=== PATIENT | male | born 1970 | race Caucasian/White ===

== ENCOUNTER 2020-10-05 03:38 | Emergency (ER) | payer OTHER, SELFPAY ==
[2020-10-05 04:04] VITALS: BP 143/93; PULSE 84; RESP 17; TEMP 36.7; O2SAT 98; BMI 25.8
[2020-10-05] MEDS: 0.9 % Sodium Chloride 1,000 ML 999 ML IV (04:53)
[2020-10-05] MEDS: ondansetron HCL 4 MG/2 ML VIAL IVPUSH ×2 (04:53→05:59)
[2020-10-05] MEDS: diphenhydrAMINE HCL 50 MG/ML VIAL 25 MG IVPUSH (04:53)
[2020-10-05] MEDS: Metoclopramide HCl 10 MG/2 ML VIAL IVPUSH (04:53)
[2020-10-05 05:08] LABS: MANUAL DIFF FLAG NO
[2020-10-05 05:09] LABS: Basophils Percent Auto 0.2 % (0-2); Hematocrit 52.6 % (42-52); Imm Gran Abs Auto 0.03 X10*3/uL (0.00-0.03); Imm Gran Pct Auto 0.2 % (0.0-0.4); Lymphocytes Absolute Auto 1.7 X10*3/uL (1.2-4.9); Lymphocytes Percent Auto 13.8 % (20-40); Mean Corpuscular HGB Conc 34.2 g/dl (31.0-36.0); Mean Corpuscular Hemoglobin 30.5 pg (27.0-33.0); Mean Corpuscular Volume 89.2 fL (80-98); Mean Platelet Volume 11.6 fL (9.4-12.4); Monocytes Absolute Auto 0.5 X10*3/uL (0.1-1.2); Neutrophils Percent Auto 81.8 % (45-73); Platelet Count 269 X10*3/uL (160-400); White Blood Count 12.2 X10*3/uL (4.8-10.8)
--- NOTE | 2020-10-05 05:10 | ED_ITS ---
HPI - Nausea/Vomiting/Diarrhea General Chief complaint: Nausea/Vomiting/Diarrhea Stated complaint: nausea/vomiting Time Seen by Provider: 10/05/20 04:23 Source: patient Mode of arrival: ambulatory History of Present Illness HPI Narrative: 49-year-old male with history of cyclical vomiting presents with recurrence of symptoms with multiple episodes of nausea and vomiting after smoking marijuana yesterday. Otherwise, he denies any new cough, fevers, chills, abdominal pain or diarrhea, and denies any urinary pain/burning/frequency. Related Data Allergies Allergy/AdvReac Type Severity Reaction Status Date / Time No Known Allergies Allergy Unverified 03/13/20 14:54 Review of Systems Review of Systems: Pertinent positives and negatives as stated in HPI and 10 point review of systems is otherwise negative. [facility] Past Medical History Source: nursing notes reviewed Medical History Cyclical vomiting with nausea Social History Social History Advance Directives: No Physical Exam Vital Signs: Vital Signs: Last Vital Signs Temp 98.0 F 10/05/20 04:04 Pulse 84 10/05/20 04:04 Resp 17 10/05/20 04:04 BP 143/93 H 10/05/20 04:04 Pulse Ox 98 10/05/20 04:04 Body Mass Index 25.8 VITAL SIGNS: Reviewed. GENERAL: Well developed, well nourished, in no acute distress. HEAD: Normocephalic/atraumatic EYES: PERRLA, EOMI NOSE: Nares patent bilateral OROPHARYNX: no oral lesions noted, posterior pharynx clear NECK: Supple, no adenopathy LUNGS: Normal breath sounds. No adventitious sounds or accessory muscle use. SpO2<98> CARDIOVASCULAR: Regular rate and rhythm without noted murmurs ABDOMEN: Soft, non-tender, non-distended with bowel sounds. NEUROLOGIC: Alert and oriented x 4. Course Course Course Narrative: This is a 49-year-old male with history and clinical presentation consistent with his underlying cyclical vomiting etiology as clinical exam is otherwise benign and doubt any intra-abdominal or intrathoracic abnormalities. Review of all investigations illustrate mild worsening of renal function likely secondary to dehydration from multiple episodes of nausea and vomiting. Will repeat basic metabolic panel. Otherwise, patient is tolerating oral intake and on re-evaluation has had complete resolution of nausea and vomiting. Signed out to Dr Mccall: f/u BMP then d/c if improvement. MDM - Nausea/Vomiting/Diarrhea Lab Data Result diagrams: 10/05/20 04:59 10/05/20 04:59 Labs: Lab Results 10/05/20 10/05/20 10/05/20 Range/Units 04:59 04:59 06:46 WBC 12.2 H (4.8-10.8) X10*3/uL RBC 5.90 H (4.60-5.80) X10*6/uL Hgb 18.0 (14.0-18.0) g/dl Hct 52.6 H (42-52) % MCV 89.2 (80-98) fL MCH 30.5 (27.0-33.0) pg MCHC 34.2 (31.0-36.0) g/dl RDW 14.0 (11.0-16.0) % Plt Count 269 (160-400) X10*3/uL MPV 11.6 (9.4-12.4) fL Immature Gran % (Auto) 0.2 (0.0-0.4) % Neut % (Auto) 81.8 H (45-73) % Lymph % (Auto) 13.8 L (20-40) % [place] % (Auto) 4.0 (2-11) % Eos % (Auto) 0.0 (0-4) % Baso % (Auto) 0.2 (0-2) % Lymph # (Auto) 1.7 (1.2-4.9) X10*3/uL [place] # (Auto) 0.5 (0.1-1.2) X10*3/uL Eos # (Auto) 0.0 (0.0-0.4) X10*3/uL Baso # (Auto) 0.0 (0.0-0.2) X10*3/uL Abs Immat Gran (auto) 0.03 (0.00-0.03) X10*3/uL Absolute Neuts (auto) 10.0 H (2.0-8.3) X10*3/uL Absolute Nucleated RBC 0.000 (0.0-0.012) X10*3/uL Nucleated RBC % (auto) 0.0 (0.0-0.2) /100WBC Sodium 148 H (135-145) mmol/L Potassium 4.3 (3.3-5.1) mmol/L Chloride 112 H (96-108) mmol/L Carbon Dioxide 15 L (22-29) mmol/L Anion Gap 25 H (12-20) BUN 37 H (9-16) mg/dL Creatinine 1.93 H (0.5-1.4) mg/dL Estim Creat Clear Calc 42.2 Estimated GFR 37 Random Glucose 144 H (60-115) mg/dL Calcium 10.6 H (8.4-10.2) mg/dL Total Bilirubin 0.9 (0.0-1.0) mg/dL AST 21 (5-37) U/L ALT 29 (0-40) U/L Alkaline Phosphatase 72 (39-117) U/L Total Protein 8.6 H (6.5-8.0) g/dL Albumin 5.1 H (3.5-5.0) g/dL Urine Color DARK YELLOW Urine Appearance CLEAR Urine pH 6.0 (5.0-8.0) Ur Specific [place] >= 1.030 H (1.005-1.025) Urine Protein TRACE (NEG-TRACE) MG/DL Urine Glucose (UA) NEG (NEG) MG/DL Urine Ketones 15 (NEG) MG/DL Urine Blood TRACE (NEG) Urine Nitrite NEG (NEG) Ur Leukocyte Esterase NEG (NEG) Urine RBC 1-4 (0) /HPF Urine WBC 0 (0-4) /HPF Ur Squamous Epith Cells TRACE /LPF Amorphous Sediment 1+ /LPF Urine Bacteria NONE /LPF Hyaline Casts 5-9 /LPF Granular Casts 0-2 /LPF Urine Mucus 1+ /LPF Discharge Plan Discharge Clinical Impression: Dehydration, Cyclical vomiting Patient Disposition: Home, Self-Care Instructions: Cyclic Vomiting Syndrome (ED), Dehydration (ED) Additional Instructions: Continues to drink plenty of water. Do not hesitate to return to the emergency department for any acute worsening of her symptoms. Referrals: Natan Chirinos MD [Primary Care Provider] - 2 days (Re-evaluation after pat ient seen in the emergency department for cyclic vomiting)
[2020-10-05 05:39] LABS: Alanine Aminotransferase 29 U/L (0-40); Albumin Level 5.1 g/dL (3.5-5.0); Alkaline Phosphatase 72 U/L (39-117); Anion Gap 25 (12-20); Aspartate Amino Transferase 21 U/L (5-37); Bilirubin Total 0.9 mg/dL (0.0-1.0); Blood Urea Nitrogen 37 mg/dL (9-16); Calcium 10.6 mg/dL (8.4-10.2); Carbon Dioxide 15 mmol/L (22-29); Chloride 112 mmol/L (96-108); Creatinine Clr Calc Pharmacy 42.2; Estimated Glomerular Filt Rate 37; Glucose Random 144 mg/dL (60-115); Potassium 4.3 mmol/L (3.3-5.1); Sodium 148 mmol/L (135-145); Total Protein 8.6 g/dL (6.5-8.0)
[2020-10-05] MEDS: LORazepam 2 MG/ML VIAL 0.25 MG IVPUSH (06:00)
--- NOTE | 2020-10-05 06:10 | PC.NURSE ---
pt states im feeling better .
[2020-10-05 06:53] LABS: Glucose Urine UA NEG (NEG); Leukocyte Esterase Urine NEG (NEG); Nitrite Urine NEG (NEG); Specific Gravity - Urine >= 1.030 (1.005-1.025); Urine Blood TRACE (NEG); Urine Ketones 15 MG/DL (NEG); Urine Protein TRACE MG/DL (NEG-TRACE)
[2020-10-05 07:11] LABS: Appearance Urine CLEAR; Color Urine DARK YELLOW
[2020-10-05 07:12] LABS: WBC Urine 0 /HPF (0-4)
[2020-10-05 07:13] LABS: Amorphous Sediment Urine 1+ /LPF; Granular Casts Urine 0-2 /LPF; Mucus Urine 1+ /LPF; Squamous Epithelial Cell Urine TRACE /LPF
[2020-10-05 07:23] LABS: Anion Gap 17 (12-20); Blood Urea Nitrogen 35 mg/dL (9-16); Carbon Dioxide 21 mmol/L (22-29); Chloride 114 mmol/L (96-108); Creatinine Clr Calc Pharmacy 47.6; Estimated Glomerular Filt Rate 43; Glucose Random 138 mg/dL (60-115); Potassium 4.2 mmol/L (3.3-5.1); Sodium 148 mmol/L (135-145)
[2020-10-05 07:32] LABS: Calcium 9.5 mg/dL (8.4-10.2)
[2020-10-05 07:58] VITALS: BP 126/77; PULSE 73; RESP 20; O2SAT 100
== END 2020-10-05 08:06 | disposition home or self-care (01) ==
PROVIDERS: Student in an Organized Health Care Education/Training Program; Emergency Provider Emergency Medicine Emergency Medical Services; PCP Family Medicine
DX: E86.0 Dehydration (principal); R11.15 Cyclical vomiting syndrome unrelated to migraine; F12.90 Cannabis use, unspecified, uncomplicated
CPT/HCPCS: 36415; 80048; 80053; 81001; 81003; 85025; 96361; 96374; 96375; 96376; 99284; J1200; J2060; J2405; J2765

== ENCOUNTER 2021-01-28 04:10 | Emergency (ER) | payer OTHER, SELFPAY ==
[2021-01-28 04:27] VITALS: BP 144/98; PULSE 110; RESP 18; TEMP 36.8; O2SAT 96; BMI 25.0
--- NOTE | 2021-01-28 04:56 | ED.NAVMDI ---
HPI - Nausea/Vomiting/Diarrhea General Chief complaint: Nausea/Vomiting/Diarrhea Stated complaint: Vomiting Time Seen by Provider: 01/28/21 04:56 Source: patient Mode of arrival: ambulatory Limitations: no limitations History of Present Illness HPI Narrative: Patient with history of cannabis abuse and cyclic vomiting syndrome comes here for vomiting since yesterday had multiple episodes of vomiting unable to hold down anything solid or liquid urinated only 1 time since yesterday p.m. smoked cannabis 2 days ago , feels very anxious no abdominal pain no diarrhea Related Data Previous Rx's Medication Instructions Recorded ondansetron HCl 4 mg tablet 4 mg PO Q6H PRN #20 tab 10/05/20 (Zofran) Allergies Allergy/AdvReac Type Severity Reaction Status Date / Time No Known Allergies Allergy Verified 01/28/21 04:28 Review of Systems Review of Systems: Yes all other systems are reviewed and are negative [facility] Past Medical History Medical History Cyclical vomiting with nausea Social History Social History Alcohol intake: current Alcohol intake frequency: a few times a month Substance Use Type: Marijuana Advance Directives: No Advance Directives Information Provided: No Physical Exam Vital Signs: Vital Signs: Last Vital Signs Temp 98.2 F 01/28/21 04:27 Pulse 110 H 01/28/21 04:27 Resp 18 01/28/21 04:27 BP 144/98 H 01/28/21 04:27 Pulse Ox 96 01/28/21 04:27 Body Mass Index 25.0 Appearance: Alert. Oriented X3. Mild distress very anxious. Eyes: No icterus or pallor ENT: Pharynx normal. Oral Mucosa dry Neck: Normal inspection. Neck supple. CVS: Normal heart rate and rhythm. Pulses normal. Respiratory: No respiratory distress. Equal air entry bilateral, no wheezing/rales/rhonchi Abdomen: Soft and nontender. Bowel sounds are present, no mass palpable, no CVA tenderness Skin: Skin warm and dry. Normal skin color. Normal skin turgor. Extremities: No lower extremity edema. No calf tenderness Neuro: Oriented X 3. MDM - Nausea/Vomiting/Diarrhea MDM Narrative Medical decision making narrative: Patient to poor oral intake with vomiting with acute on chronic renal failure. Will give 2 L of IV fluids repeat the labs and follow Patient signed out to Dr. Fleming pending disposition Medical Records Medical records narrative: Patient with decreased oral intake with vomiting with acute renal failure and hypernatremia. Will give IV fluids recheck lytes and kidney functions and disposition will be decided after checking the repeat labs Lab Data Attestation: I reviewed the patient's lab results. Result diagrams: 01/28/21 05:17 01/28/21 05:17 Labs: Lab Results 01/28/21 01/28/21 Range/Units 05:17 05:17 WBC 12.8 H (4.8-10.8) X10*3/uL RBC 6.26 H (4.60-5.80) X10*6/uL Hgb 19.3 H (14.0-18.0) g/dl Hct 56.1 H (42-52) % MCV 89.6 (80-98) fL MCH 30.8 (27.0-33.0) pg MCHC 34.4 (31.0-36.0) g/dl RDW 13.3 (11.0-16.0) % Plt Count 332 (160-400) X10*3/uL MPV 11.1 (9.4-12.4) fL Immature Gran % (Auto) 0.5 H (0.0-0.4) % Neut % (Auto) 86.2 H (45-73) % Lymph % (Auto) 10.4 L (20-40) % [place] % (Auto) 2.7 (2-11) % Eos % (Auto) 0.0 (0-4) % Baso % (Auto) 0.2 (0-2) % Lymph # (Auto) 1.3 (1.2-4.9) X10*3/uL [place] # (Auto) 0.4 (0.1-1.2) X10*3/uL Eos # (Auto) 0.0 (0.0-0.4) X10*3/uL Baso # (Auto) 0.0 (0.0-0.2) X10*3/uL Abs Immat Gran (auto) 0.06 H (0.00-0.03) X10*3/uL Absolute Neuts (auto) 11.0 H (2.0-8.3) X10*3/uL Absolute Nucleated RBC 0.000 (0.0-0.012) X10*3/uL Nucleated RBC % (auto) 0.0 (0.0-0.2) /100WBC Sodium 151 H (135-145) mmol/L Potassium 4.6 (3.3-5.1) mmol/L Chloride 111 H (96-108) mmol/L Carbon Dioxide 23 (22-29) mmol/L Anion Gap 21 H (12-20) BUN 31 H (9-16) mg/dL Creatinine 2.43 H (0.5-1.4) mg/dL Estim Creat Clear Calc 33.1 Estimated GFR 29 Random Glucose 153 H (60-115) mg/dL Calcium 11.8 H D (8.4-10.2) mg/dL Discharge Plan Discharge Clinical Impression: Acute hypernatremia Vomiting Qualifiers: Vomiting type: cyclical vomiting syndrome unrelated to migraine Qualified Code(s): R11.15 - Cyclical vomiting syndrome unrelated to migraine Acute renal failure superimposed on chronic kidney disease Qualifiers: Acute renal failure type: unspecified Chronic kidney disease stage: stage 3 (moderate) Chronic kidney disease stage 3 subtype: stage 3a (GFR 45-59) Qualified Code(s): N17.9 - Acute kidney failure, unspecified Prescriptions: No Action ondansetron HCl [Zofran] 4 mg tablet 4 mg PO Q6H PRN (Reason: nausea and vomiting) Qty: 20 RF: 0
[2021-01-28] MEDS: 0.9 % Sodium Chloride 1,000 ML 999 ML IVCONT ×3 (05:18→09:13)
[2021-01-28 05:22] LABS: MANUAL DIFF FLAG NO
[2021-01-28 05:23] LABS: Basophils Percent Auto 0.2 % (0-2); Hemoglobin 19.3 g/dl (14.0-18.0); Imm Gran Abs Auto 0.06 X10*3/uL (0.00-0.03); Imm Gran Pct Auto 0.5 % (0.0-0.4); Lymphocytes Absolute Auto 1.3 X10*3/uL (1.2-4.9); Lymphocytes Percent Auto 10.4 % (20-40); Mean Corpuscular HGB Conc 34.4 g/dl (31.0-36.0); Mean Corpuscular Hemoglobin 30.8 pg (27.0-33.0); Mean Corpuscular Volume 89.6 fL (80-98); Mean Platelet Volume 11.1 fL (9.4-12.4); Monocytes Absolute Auto 0.4 X10*3/uL (0.1-1.2); Monocytes Percent Auto 2.7 % (2-11); Neutrophils Percent Auto 86.2 % (45-73); Platelet Count 332 X10*3/uL (160-400); Red Blood Count 6.26 X10*6/uL (4.60-5.80); Red Cell Distribution Width 13.3 % (11.0-16.0); White Blood Count 12.8 X10*3/uL (4.8-10.8)
[2021-01-28 05:26] LABS: Hematocrit 56.1 % (42-52)
[2021-01-28] MEDS: LORazepam 2 MG/ML VIAL 1 MG IVPUSH (05:28)
[2021-01-28] MEDS: Prochlorperazine Edisylate 10 MG/2 ML VIAL IVPUSH (05:28)
[2021-01-28 06:01] LABS: Anion Gap 21 (12-20); Blood Urea Nitrogen 31 mg/dL (9-16); Calcium 11.8 mg/dL (8.4-10.2); Carbon Dioxide 23 mmol/L (22-29); Chloride 111 mmol/L (96-108); Creatinine Clr Calc Pharmacy 33.1; Estimated Glomerular Filt Rate 29; Glucose Random 153 mg/dL (60-115); Potassium 4.6 mmol/L (3.3-5.1); Sodium 151 mmol/L (135-145)
[2021-01-28 07:15] VITALS: BP 144/98; PULSE 101; RESP 16; TEMP 36.5; O2SAT 96
--- NOTE | 2021-01-28 08:16 | PC.NURSE ---
Patient is resting quietly in bed in no distress. Pt denies any pain. Pt has tolerated sips of water well this morning
[2021-01-28 08:29] VITALS: BP 136/89; PULSE 90; RESP 14; O2SAT 98
--- NOTE | 2021-01-28 08:55 | PC.NURSE ---
Patient blood drawn for repeat labs. Pt states he want to go home and and be called with the results. Doctor notified of request.
--- NOTE | 2021-01-28 09:01 | PC.NURSE ---
Doctor at bedside talking with patient
--- NOTE | 2021-01-28 09:43 | PC.NURSE ---
Patient is resting quietly in bed in no distress. Pt denies any pain. Pt given ice chips per his request.
[2021-01-28 09:44] LABS: Blood Urea Nitrogen 27 mg/dL (9-16); Creatinine Clr Calc Pharmacy 47.9; Estimated Glomerular Filt Rate 44; Glucose Random 124 mg/dL (60-115)
[2021-01-28 10:11] LABS: Anion Gap 17 (12-20); Calcium 9.3 mg/dL (8.4-10.2); Carbon Dioxide 21 mmol/L (22-29); Chloride 117 mmol/L (96-108); Potassium 4.1 mmol/L (3.3-5.1); Sodium 151 mmol/L (135-145)
--- NOTE | 2021-01-28 10:36 | PC.NURSE ---
Patient is asleep in bed in no distress
--- NOTE | 2021-01-28 10:42 | PC.NURSE ---
Patient requesting to talk to the doctor. Pt not wanting any additional iv fluids. Doctor notified.
--- NOTE | 2021-01-28 10:53 | PC.NURSE ---
Peripheral iv removed and pressure bandage applied. Discharge instructions given to pt who verbalized understanding and denies any questions.
== END 2021-01-28 10:54 | disposition home or self-care (01) ==
PROVIDERS: Emergency Provider Internal Medicine
DX: E87.0 Hyperosmolality and hypernatremia (principal); R11.15 Cyclical vomiting syndrome unrelated to migraine; N17.9 Acute kidney failure, unspecified; F12.10 Cannabis abuse, uncomplicated
CPT/HCPCS: 36415; 80048; 85025; 96361; 96374; 96375; 99284; J2060

== ENCOUNTER 2021-10-23 04:02 | Emergency (ER) | payer OTHER, SELFPAY ==
[2021-10-23 04:08] VITALS: BP 145/111; PULSE 83; RESP 20; TEMP 37.1; O2SAT 99; BMI 25.3
--- NOTE | 2021-10-23 04:17 | ED.NAVMDI ---
HPI - Nausea/Vomiting/Diarrhea General Chief complaint: Nausea/Vomiting/Diarrhea Stated complaint: n/v Time Seen by Provider: 10/23/21 04:11 Source: patient Mode of arrival: ambulatory Limitations: no limitations History of Present Illness HPI Narrative: Patient comes to emergency room complaining of 2 days of cyclical vomiting. Patient states that he has been using marijuana. 2 hours ago, patient use sublingual Zofran without any relief. Patient denies vomiting blood, no diarrhea, no fever chills. Related Data Previous Rx's Medication Instructions Recorded ondansetron HCl 4 mg tablet 4 mg PO Q6H PRN #20 tab 10/05/20 (Zofran) ondansetron HCl 4 mg tablet 4 mg PO Q8H PRN #10 tab 01/28/21 (Zofran) prochlorperazine 25 mg rectal 25 mg ND BID PRN #12 ea 10/23/21 suppository (Compazine) prochlorperazine maleate 5 mg 5 mg PO TID PRN #10 tab 10/23/21 tablet (Compazine) Allergies Allergy/AdvReac Type Severity Reaction Status Date / Time No Known Allergies Allergy Verified 10/23/21 04:10 Review of Systems Review of Systems: Constitutional : No Weight loss, No Fever, No Chills, No Night Sweats, No Fatigue, No Malaise ENT/Mouth : No Hearing loss, No Ear Pain, No Nasal Congestion, No Sinus Pain, No Hoarseness, No sore throat, No Rhinorrhea, No Swallowing Difficulty Eyes: No Eye Pain, No Swelling, No Redness, No Foreign Body, No Discharge, No Vision Changes Cardiovascular : No Chest Pain, No SOB, No Dyspnea on Exertion, No Orthopnea, No Edema, No Palpitations Respiratory : No Cough, No Sputum, No Wheezing, No Smoke Exposure, No Dyspnea Gastrointestinal : Complaining of nausea vomiting, Diarrhea, No Constipation, No abdominal Pain, No Hematochezia, No Melena Genitourinary : no irregular bleeding, No Dysuria, No Urinary Frequency, No Hematuria, No Urinary Incontinence, No Urgency, No Flank Pain, No Urinary Flow Changes, No Hesitancy Musculoskeletal : No joint pain, No Myalgias, No Joint Swelling Skin : No Skin Lesions, No rash Neuro : No Weakness, No Numbness, No Paresthesias, No Loss of Consciousness, No Dizziness, No Headache Psych : No Anxiety/Panic, No Depression, No SI/HI/AH/VH, No Social Issues, Heme/Lymph: No Bruising, No Bleeding,No Lymphadenopathy Endocrine : No Polyuria, No Polydipsia, No Temperature Intolerance [facility] Past Medical History Medical History Cyclical vomiting with nausea Social History Social History Alcohol intake: current Alcohol intake frequency: a few times a month Substance Use Type: Marijuana Advance Directives: No Advance Directives Information Provided: Yes Physical Exam Vital Signs: Vital Signs: Last Vital Signs Temp 98.7 F 10/23/21 04:08 Pulse 83 10/23/21 04:08 Resp 20 10/23/21 04:08 BP 145/111 H 10/23/21 04:08 Pulse Ox 99 10/23/21 04:08 BMI result Body Mass Index 25.3 Const: Other: Appearance: Alert. Oriented X3. No acute distress. Eyes: Pupils equal, round and reactive to light. ENT: Pharynx normal. Neck: Normal inspection. Neck supple. No lymph nodes noted. No crepitus CVS: Normal heart rate and rhythm. Pulses normal. Normal S1 and S2 Respiratory: No respiratory distress. Breath sounds normal. No Wheezing. No rales Abdomen: Soft and nontender. No rigidity. No distention. Skin: Skin warm and dry. Normal skin color. Normal skin turgor. Extremities: No lower extremity edema. No Lacerations. No Rash Neuro: Oriented X 3. No motor deficit. No sensory deficit. Moving all extremities. No slurred speech. CN 2 through 12 grossly intact Psych: calm, cooperative, normal affect Course Course Course Narrative: Labs pending. Patient is receiving IV fluids, Compazine 10 mg IV. Patient has not vomited in the emergency room, patient was p.o. challenged and doing well. MDM - Nausea/Vomiting/Diarrhea Lab Data Result diagrams: 10/23/21 04:23 10/23/21 04:48 Labs: Lab Results 10/23/21 10/23/21 10/23/21 Range/Units 04:23 04: 04:23 WBC 20.3 H (4.8-10.8) X10*3/uL RBC 5.94 H (4.60-5.80) X10*6/uL Hgb 18.0 (14.0-18.0) g/dl Hct 53.5 H (42.0-52.0) % MCV 90.1 (80.0-98.0) fL MCH 30.3 (27.0-33.0) pg MCHC 33.6 (31.0-36.0) g/dl RDW 14.4 (11.0-16.0) % Plt Count 301 (160-400) X10*3/uL MPV 11.1 (9.4-12.4) fL Immature Gran % (Auto) 0.4 (0.0-0.4) % Neut % (Auto) 81.6 H (45-73) % Lymph % (Auto) 12.0 L (20-40) % [place] % (Auto) 5.8 (2-11) % Eos % (Auto) 0.0 (0-4) % Baso % (Auto) 0.2 (0-2) % Lymph # (Auto) 2.4 (1.2-4.9) X10*3/uL [place] # (Auto) 1.2 (0.1-1.2) X10*3/uL Eos # (Auto) 0.0 (0.0-0.4) X10*3/uL Baso # (Auto) 0.1 (0.0-0.2) X10*3/uL Abs Immat Gran (auto) 0.09 H (0.00-0.03) X10*3/uL Absolute Neuts (auto) 16.6 H (2.0-8.3) x10*3/uL Absolute Nucleated RBC 0.000 (0.0-0.012) X10*3/uL Nucleated RBC % (auto) 0.0 (0.0-0.2) /100WBC Sodium (135-145) mmol/L Potassium (3.3-5.1) mmol/L Chloride (96-108) mmol/L Carbon Dioxide (22-29) mmol/L Anion Gap (12-20) BUN (9-16) mg/dL Creatinine (0.5-1.4) mg/dL Estim Creat Clear Calc Estimated GFR Random Glucose (60-115) mg/dL Calcium (8.4-10.2) mg/dL Total Bilirubin (0.0-1.0) mg/dL Direct Bilirubin (0.0-0.5) mg/dL AST (5-37) U/L ALT (0-40) U/L Alkaline Phosphatase (39-117) U/L Total Protein (6.5-8.0) g/dL Albumin (3.5-5.0) g/dL Lipase (8-78) U/L COVID-19 (JHOAN) Negative (Negative) COVID-19 Clin Com See Note Influenza Type A (MARIANA) Negative (Negative) Influenza Type B (MARIANA) Negative (Negative) Influenza A & B Note See Note 10/23/21 Range/Units 04:48 WBC (4.8-10.8) X10*3/uL RBC (4.60-5.80) X10*6/uL Hgb (14.0-18.0) g/dl Hct (42.0-52.0) % MCV (80.0-98.0) fL MCH (27.0-33.0) pg MCHC (31.0-36.0) g/dl RDW (11.0-16.0) % Plt Count (160-400) X10*3/uL MPV (9.4-12.4) fL Immature Gran % (Auto) (0.0-0.4) % Neut % (Auto) (45-73) % Lymph % (Auto) (20-40) % [place] % (Auto) (2-11) % Eos % (Auto) (0-4) % Baso % (Auto) (0-2) % Lymph # (Auto) (1.2-4.9) X10*3/uL [place] # (Auto) (0.1-1.2) X10*3/uL Eos # (Auto) (0.0-0.4) X10*3/uL Baso # (Auto) (0.0-0.2) X10*3/uL Abs Immat Gran (auto) (0.00-0.03) X10*3/uL Absolute Neuts (auto) (2.0-8.3) x10*3/uL Absolute Nucleated RBC (0.0-0.012) X10*3/uL Nucleated RBC % (auto) (0.0-0.2) /100WBC Sodium 145 (135-145) mmol/L Potassium 4.1 (3.3-5.1) mmol/L Chloride 112 H (96-108) mmol/L Carbon Dioxide 21 L (22-29) mmol/L Anion Gap 16 (12-20) BUN 65 H (9-16) mg/dL Creatinine 2.93 H (0.5-1.4) mg/dL Estim Creat Clear Calc 27.5 Estimated GFR 23 Random Glucose 139 H (60-115) mg/dL Calcium 10.2 D (8.4-10.2) mg/dL Total Bilirubin 1.1 H (0.0-1.0) mg/dL Direct Bilirubin 0.3 (0.0-0.5) mg/dL AST 17 (5-37) U/L ALT 25 (0-40) U/L Alkaline Phosphatase 73 (39-117) U/L Total Protein 8.3 H (6.5-8.0) g/dL Albumin 4.9 (3.5-5.0) g/dL Lipase 9 (8-78) U/L COVID-19 (JHOAN) (Negative) COVID-19 Clin Com Influenza Type A (MARIANA) (Negative) Influenza Type B (MARIANA) (Negative) Influenza A & B Note Discharge Plan Discharge Clinical Impression: Cyclical vomiting Patient Disposition: Home, Self-Care Instructions: Cyclic Vomiting Syndrome (ED) Additional Instructions: Please follow-up with your primary care physician tomorrow. If you have any worsening or new symptoms, please return to the emergency room or call 911 Prescriptions: New prochlorperazine maleate [Compazine] 5 mg tablet 5 mg PO TID PRN (Reason: nausea and vomiting) Qty: 10 0RF prochlorperazine [Compazine] 25 mg suppository 25 mg ND BID PRN (Reason: nausea and vomiting) Qty: 12 0RF Rx Instructions: Use rectal suppositories in case of p.o. intolerance No Action ondansetron HCl [Zofran] 4 mg tablet 4 mg PO Q6H PRN (Reason: nausea and vomiting) Qty: 20 0RF ondansetron HCl [Zofran] 4 mg tablet 4 mg PO Q8H PRN (Reason: nausea and vomiting) Qty: 10 0RF
[2021-10-23 04:28] LABS: MANUAL DIFF FLAG NO
[2021-10-23 04:30] LABS: Basophils Absolute Auto 0.1 X10*3/uL (0.0-0.2); Basophils Percent Auto 0.2 % (0-2); Hematocrit 53.5 % (42.0-52.0); Imm Gran Abs Auto 0.09 X10*3/uL (0.00-0.03); Imm Gran Pct Auto 0.4 % (0.0-0.4); Lymphocytes Absolute Auto 2.4 X10*3/uL (1.2-4.9); Mean Corpuscular HGB Conc 33.6 g/dl (31.0-36.0); Mean Corpuscular Hemoglobin 30.3 pg (27.0-33.0); Mean Corpuscular Volume 90.1 fL (80.0-98.0); Mean Platelet Volume 11.1 fL (9.4-12.4); Monocytes Absolute Auto 1.2 X10*3/uL (0.1-1.2); Monocytes Percent Auto 5.8 % (2-11); Neutrophils Absolute Auto 16.6 x10*3/uL (2.0-8.3); Neutrophils Percent Auto 81.6 % (45-73); Platelet Count 301 X10*3/uL (160-400); Red Blood Count 5.94 X10*6/uL (4.60-5.80); Red Cell Distribution Width 14.4 % (11.0-16.0); White Blood Count 20.3 X10*3/uL (4.8-10.8)
[2021-10-23] MEDS: Prochlorperazine Edisylate 10 MG/2 ML VIAL IVPUSH (04:30)
[2021-10-23] MEDS: 0.9 % Sodium Chloride 1,000 ML 999 ML IVCONT (04:30)
[2021-10-23 04:50] LABS: COVID-19 Test Negative (Negative); IDNOW Serial# 55D5AD1C; Influenza A Negative (Negative); Influenza B2 Negative (Negative)
[2021-10-23 05:18] LABS: Alanine Aminotransferase 25 U/L (0-40); Albumin Level 4.9 g/dL (3.5-5.0); Alkaline Phosphatase 73 U/L (39-117); Anion Gap 16 (12-20); Aspartate Amino Transferase 17 U/L (5-37); Bilirubin Direct 0.3 mg/dL (0.0-0.5); Bilirubin Total 1.1 mg/dL (0.0-1.0); Blood Urea Nitrogen 65 mg/dL (9-16); Calcium 10.2 mg/dL (8.4-10.2); Carbon Dioxide 21 mmol/L (22-29); Chloride 112 mmol/L (96-108); Creatinine Clr Calc Pharmacy 27.5; Estimated Glomerular Filt Rate 23; Glucose Random 139 mg/dL (60-115); Lipase 9 U/L (8-78); Potassium 4.1 mmol/L (3.3-5.1); Sodium 145 mmol/L (135-145); Total Protein 8.3 g/dL (6.5-8.0)
--- NOTE | 2021-10-23 05:30 | PC.NURSE ---
Assumed care of pt Pt c/o n/v since Tuesday. Per pt, unable to keep anything down. Pt has been taking zofran with no relief Hx of cyclic vomiting
--- NOTE | 2021-10-23 05:31 | PC.NURSE ---
Pt medicated per MAR Pt tolerated well Pt tolerating IV fluids Will continue to monitor
[2021-10-23 06:09] LABS: Appearance Urine HAZY; Color Urine YELLOW; Glucose Urine UA NEG (NEG); Leukocyte Esterase Urine NEG (NEG); Nitrite Urine NEG (NEG); Specific Gravity - Urine 1.025 (1.005-1.025); UACC Culture Trigger NO; Urine Blood TRACE (NEG); Urine Ketones NEG (NEG); Urine Protein NEG (NEG-TRACE)
--- NOTE | 2021-10-23 06:10 | PC.NURSE ---
Pt tolerating PO fluids Denies any nausea or vomiting
[2021-10-23 06:21] LABS: Amphetamine Screen Urine Not Detected (Not Detect); Barbiturates, Urine Not Detected (Not Detect); Benzodiazepines Screen Urine Not Detected (Not Detect); Cannabinoid Screen Urine POSITIVE (Not Detect); Cocaine Screen Urine Not Detected (Not Detect); Fentanyl, urine Not Detected (Not Detect); Opiate Screen Urine Not Detected (Not Detect); Phencyclidine Screen Urine Not Detected (Not Detect)
[2021-10-23 06:37] LABS: Bacteria Urine TRACE /LPF; Mucus Urine TRACE /LPF; RBC Urine 0-2 /HPF (0); Squamous Epithelial Cell Urine TRACE /LPF; WBC Urine 0 /HPF (0-4)
== END 2021-10-23 06:16 | disposition home or self-care (01) ==
PROVIDERS: Emergency Provider Emergency Medicine
DX: R11.15 Cyclical vomiting syndrome unrelated to migraine (principal); R11.2 Nausea with vomiting, unspecified; R19.7 Diarrhea, unspecified; Z20.822 Contact with and (suspected) exposure to COVID-19; Z79.899 Other long term (current) drug therapy
CPT/HCPCS: 36415; 80048; 80076; 80307; 81001; 83690; 85025; 87502; 87635; 96361; 96374; 99283; 99284

== ENCOUNTER 2022-03-29 08:53 | Emergency (ER) | payer OTHER, SELFPAY ==
[2022-03-29 09:14] VITALS: BP 132/96; PULSE 92; RESP 16; TEMP 35.9; O2SAT 97; BMI 25.8
--- NOTE | 2022-03-29 10:14 | ED_ITS ---
HPI - Nausea/Vomiting/Diarrhea General Chief complaint: Nausea/Vomiting/Diarrhea Stated complaint: N/V Time Seen by Provider: 03/29/22 09:54 Source: patient Mode of arrival: ambulatory History of Present Illness HPI Narrative: 51-year-old male with a past medical history of sickle call vomiting presenting to the ED complaining of cannabis induced cyclical vomiting since yesterday with associated nausea, vomiting x about 5 episodes, and decreased p.o. intake. Last smoked marijuana 2 days ago. Reports mild abdominal cramping. Denies hematemesis, diarrhea/constipation, dysuria/hematuria, other illicit drugs/ETOH, fever/chills MD elicited complaint: nausea, vomiting and abdominal pain Pertinent past history: cyclical vomiting Onset (ago): day(s) Related Data Previous Rx's Medication Instructions Recorded ondansetron HCl 4 mg tablet 4 mg PO Q6H PRN nausea and 10/05/20 (Zofran) vomiting #20 tabs ondansetron HCl 4 mg tablet 4 mg PO Q8H PRN nausea and 01/28/21 (Zofran) vomiting #10 tabs prochlorperazine 25 mg rectal 25 mg NJ BID PRN nausea and 10/23/21 suppository (Compazine) vomiting #12 ea prochlorperazine maleate 5 mg 5 mg PO TID PRN nausea and 10/23/21 tablet (Compazine) vomiting #10 tabs prochlorperazine maleate 5 mg 5 mg PO Q8H PRN nausea and 03/29/22 tablet vomiting 48 hours #6 tabs Allergies Allergy/AdvReac Type Severity Reaction Status Date / Time No Known Allergies Allergy Verified 10/23/21 04:10 Review of Systems Review of Systems: Constitutional: No Fever, No Chills, No Fatigue, No Malaise ENT/Mouth: No Hearing loss, No Ear Pain, No sore throat, No Rhinorrhea, No Swallowing Difficulty Eyes: No Eye Pain, No Swelling, No Vision Changes Cardiovascular: No Chest Pain, No SOB, No Edema Respiratory: No Cough, No Sputum, No Dyspnea Gastrointestinal: + Nausea, + Vomiting, No Diarrhea, No Constipation, + Abdominal cramping, No Hematochezia, No Melena Genitourinary: No Dysuria, No Urinary Frequency, No Hematuria, No Urinary Inco ntinence/retention, No Flank Pain, No Urinary Flow Changes, No Hesitancy Musculoskeletal: No joint pain, No Myalgias, No Joint Swelling Skin: No Skin Lesions, No rash Neuro: No Weakness, No Loss of Consciousness, No Dizziness, No Headache Yes all other systems are reviewed and are negative Constitutional: Constitutional: Reports as per [facility] Past Medical History Attestation statement: The following information was validated with the patient. Medical History Cyclical vomiting with nausea Social History Social History Alcohol intake: current Alcohol intake frequency: a few times a month Substance Use Type: Marijuana Advance Directives: No Advance Directives Information Provided: Yes Physical Exam Vital Signs: Vital Signs: Last Vital Signs Temp 96.7 F L 03/29/22 09:14 Pulse 92 03/29/22 09:14 Resp 16 03/29/22 09:14 BP 132/96 H 03/29/22 09:14 Pulse Ox 97 03/29/22 09:14 O2 Del Method 03/29/22 09:14 BMI result Body Mass Index 25.8 Const: General: cooperative, healthy appearing and no acute distress Orientation/consciousness: patient oriented x3 Limitations: no limitations HEENT: Head: Yes normal to inspection and Yes atraumatic Ears: hearing grossly normal bilaterally General nose exam: Normal external nose present Face and sinus: Yes normal facial exam Eyes: General: appearance normal, both eyes and all related structures EOM: EOMs intact bilaterally Neck: Neck: Yes normal visual inspection and Yes no meningeal signs Resp: Effort & Inspection: normal respiratory effort and no respiratory distress Auscultation: clear to auscultation bilaterally Cardio: Rate: regular rate Heart sounds: S1 normal heart sound present and S2 normal heart sound present GI: Inspection: Yes normal to inspection Palpation (GI): Soft to palpation, nontender, no guarding and not rigid Skin: Rashes: no rashes Wounds: no wounds Neuro: General: patient oriented x3, tone normal and no meningeal signs Gait exam (Neuro): Normal gait present Extrem: General: Yes normal to inspection Course Course Course Narrative: -1103--leukocytosis of 15.8 > likely reactive from nausea/vomiting. Hemoglobin acute on chronically hemoconcentrated likely from dehydration -mild hypernatremia, and TEMO with an anion gap likely from ketosis/dehydration which appears acute on chronic >> will give 2 L IVF and repeat labs UA with 40 ketones, protein, trace leuk esterase and RBCs. Tox screen positive for THC. 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 Will sign out against medical advice. Stressed the importance of p.o. hydration, patient is A&O x3, able to make his own decisions, always off with return MDM - Nausea/Vomiting/Diarrhea MDM Narrative Medical decision making narrative: 51-year-old male with a past medical history of sickle call vomiting presenting to the ED complaining of cannabis induced cyclical vomiting since yesterday with associated nausea, vomiting x about 5 episodes, and decreased p.o. intake. On exam vital signs stable, NAD, nontoxic appearing, abdomen soft/nontender. Concern for THC induced cyclical vomiting vs gastroenteritis vs dehydration/metabolic abnormalities. Low suspicion for appendicit is/diverticulitis or cholecystitis/lithiasis Plan: Labs, UA, drug screen, IVF, IV Zofran/Benadryl, re-evaluate Differential Diagnosis Differential diagnosis: Likely gastroenteritis, drug-induced nausea and vomiting and dehydration Medical Records Attestation: I reviewed the patient's medical records. Lab Data Attestation: I reviewed the patient's lab results. Result diagrams: 03/29/22 10:23 03/29/22 14:27 Labs: Lab Results 03/29/22 03/29/22 03/29/22 Range/Units 10: 10: 11:17 WBC 15.8 H (4.8-10.8) X10*3/uL RBC 6.65 H (4.60-5.80) X10*6/uL Hgb 20.1 H (14.0-18.0) g/dl Hct 58.8 H (42.0-52.0) % MCV 88.4 (80.0-98.0) fL MCH 30.2 (27.0-33.0) pg MCHC 34.2 (31.0-36.0) g/dl RDW 14.0 (11.0-16.0) % Plt Count 355 (160-400) X10*3/uL MPV 10.9 (9.4-12.4) fL Immature Gran % (Auto) 0.5 H (0.0-0.4) % Neut % (Auto) 88.6 H (45-73) % Lymph % (Auto) 8.8 L (20-40) % Davidson % (Auto) 1.8 L (2-11) % Eos % (Auto) 0.0 (0-4) % Baso % (Auto) 0.3 (0-2) % Lymph # (Auto) 1.4 (1.2-4.9) X10*3/uL Davidson # (Auto) 0.3 (0.1-1.2) X10*3/uL Eos # (Auto) 0.0 (0.0-0.4) X10*3/uL Baso # (Auto) 0.0 (0.0-0.2) X10*3/uL Abs Immat Gran (auto) 0.08 H (0.00-0.03) X10*3/uL Absolute Neuts (auto) 14.0 H (2.0-8.3) x10*3/uL Absolute Nucleated RBC 0.000 (0.0-0.012) X10*3/uL Nucleated RBC % (auto) 0.0 (0.0-0.2) /100WBC Sodium (135-145) mmol/L Potassium (3.3-5.1) mmol/L Chloride (96-108) mmol/L Carbon Dioxide (22-29) mmol/L Anion Gap (12-20) BUN (9-16) mg/dL Creatinine (0.5-1.4) mg/dL Estim Creat Clear Calc Estimated GFR Random Glucose (60-115) mg/dL Calcium (8.4-10.2) mg/dL Magnesium (1.6-2.6) mg/dL Total Bilirubin (0.0-1.0) mg/dL Direct Bilirubin (0.0-0.5) mg/dL AST (5-37) U/L ALT (0-40) U/L Alkaline Phosphatase (39-117) U/L Total Protein (6.5-8.0) g/dL Albumin (3.5-5.0) g/dL Lipase (8-78) U/L Urine Color Dark Yellow Urine Appearance Turbid Urine pH 5.0 (5.0-9.0) Ur Specific [place] >= 1.030 H (1.005-1.025) Urine Protein 300 (3+) H (Neg-Trace) mg/dL Urine Glucose (UA) Negative (Negative) mg/dL Urine Ketones 40 (Negative) mg/dL Urine Blood Negative (Negative) Urine Nitrite Negative (Negative) Ur Leukocyte Esterase Trace H (Negative) Urine RBC 3-5 H (0-2) /HPF Urine WBC 0-5 (0-5) /HPF Ur Squamous Epith Cells 6-10 (0-2) /HPF Urine Bacteria None Seen (None Seen) Hyaline Casts >20 (0-2) /LPF Granular Casts Present Urine Opiates Screen (Not Detect) Urine Fentanyl Screen (Not Detect) Ur Barbiturates Screen (Not Detect) Ur Phencyclidine Scrn (Not Detect) Ur Amphetamines Screen (Not Detect) U Benzodiazepines Scrn (Not Detect) Urine Cocaine Screen (Not Detect) U Marijuana (THC) Screen (Not Detect) COVID-19 (JHOAN) Negative (Negative) COVID-19 Clin Com See Note 03/29/22 03/29/22 03/29/22 Range/Units 11:17 11:51 14:27 WBC (4.8-10.8) X10*3/uL RBC (4.60-5.80) X10*6/uL Hgb (14.0-18.0) g/dl Hct (42.0-52.0) % MCV (80.0-98.0) fL MCH (27.0-33.0) pg MCHC (31.0-36.0) g/dl RDW (11.0-16.0) % Plt Count (160-400) X10*3/uL MPV (9.4-12.4) fL Immature Gran % (Auto) (0.0-0.4) % Neut % (Auto) (45-73) % Lymph % (Auto) (20-40) % Davidson % (Auto) (2-11) % Eos % (Auto) (0-4) % Baso % (Auto) (0-2) % Lymph # (Auto) (1.2-4.9) X10*3/uL Davidson # (Auto) (0.1-1.2) X10*3/uL Eos # (Auto) (0.0-0.4) X10*3/uL Baso # (Auto) (0.0-0.2) X10*3/uL Abs Immat Gran (auto) (0.00-0.03) X10*3/uL Absolute Neuts (auto) (2.0-8.3) x10*3/uL Absolute Nucleated RBC (0.0-0.012) X10*3/uL Nucleated RBC % (auto) (0.0-0.2) /100WBC Sodium 147 H 145 (135-145) mmol/L Potassium 4.9 4.1 (3.3-5.1) mmol/L Chloride 107 108 (96-108) mmol/L Carbon Dioxide 20 L 20 L (22-29) mmol/L Anion Gap 25 H 21 H (12-20) BUN 31 H D 31 H (9-16) mg/dL Creatinine 2.46 H 2.13 H (0.5-1.4) mg/dL Estim Creat Clear Calc 32.4 37.4 Estimated GFR 28 33 Random Glucose 143 H 204 H D (60-115) mg/dL Calcium 11.5 H D 10.0 D (8.4-10.2) mg/dL Magnesium 2.6 (1.6-2.6) mg/dL Total Bilirubin 1.2 H (0.0-1.0) mg/dL Direct Bilirubin 0.4 (0.0-0.5) mg/dL AST 23 (5-37) U/L ALT 36 (0-40) U/L Alkaline Phosphatase 93 D (39-117) U/L Total Protein 9.8 H (6.5-8.0) g/dL Albumin 5.8 H (3.5-5.0) g/dL Lipase 21 (8-78) U/L Urine Color Urine Appearance Urine pH (5.0-9.0) Ur Specific [place] (1.005-1.025) Urine Protein (Neg-Trace) mg/dL Urine Glucose (UA) (Negative) mg/dL Urine Ketones (Negative) mg/dL Urine Blood (Negative) Urine Nitrite (Negative) Ur Leukocyte Esterase (Negative) Urine RBC (0-2) /HPF Urine WBC (0-5) /HPF Ur Squamous Epith Cells (0-2) /HPF Urine Bacteria (None Seen) Hyaline Casts (0-2) /LPF Granular Casts Urine Opiates Screen Not Detected (Not Detect) Urine Fentanyl Screen Not Detected (Not Detect) Ur Barbiturates Screen Not Detected (Not Detect) Ur Phencyclidine Scrn Not Detected (Not Detect) Ur Amphetamines Screen Not Detected (Not Detect) U Benzodiazepines Scrn Not Detected (Not Detect) Urine Cocaine Screen Not Detected (Not Detect) U Marijuana (THC) Screen POSITIVE H (Not Detect) COVID-19 (JHOAN) (Negative) COVID-19 Clin Com Discharge Plan Discharge Clinical Impression: Cyclical vomiting, Dehydration, TEMO (acute kidney injury) Patient Disposition: Left Against Medical Advice Instructions: Acute Nausea and Vomiting (ED) Additional Instructions: -Your blood work showed severe dehydration, and acute kidney injury from your dehydration. It is very important you to stay hydrated. youre signing out against medical advice, it is recommended he stay for more fluids and potential admission -use Compazine at home as needed for nausea/vomiting -Make sure you are drinking plenty of fluids at home. Avoid marijuana use as is the cause of your symptoms. -If you are unable to eat or drink, or not making urine, develops fever, persistent nausea or vomiting return to the emergency department. -Follow up with your doctor Prescriptions: New prochlorperazine maleate 5 mg tablet 5 mg PO Q8H MDD 40mg PRN (Reason: nausea and vomiting) 2 Days Qty: 6 0RF No Action ondansetron HCl [Zofran] 4 mg tablet 4 mg PO Q6H PRN (Reason: nausea and vomiting) Qty: 20 0RF ondansetron HCl [Zofran] 4 mg tablet 4 mg PO Q8H PRN (Reason: nausea and vomiting) Qty: 10 0RF prochlorperazine maleate [Compazine] 5 mg tablet 5 mg PO TID PRN (Reason: nausea and vomiting) Qty: 10 0RF prochlorperazine [Compazine] 25 mg suppository 25 mg NJ BID PRN (Reason: nausea and vomiting) Qty: 12 0RF Rx Instructions: Use rectal suppositories in case of p.o. intolerance Referrals: Natan Chirinos MD [Primary Care Provider] - 5 days Stand Alone Forms: Against Medical Advice
[2022-03-29 10:28] LABS: MANUAL DIFF FLAG NO
[2022-03-29 10:30] LABS: Basophils Percent Auto 0.3 % (0-2); Imm Gran Abs Auto 0.08 X10*3/uL (0.00-0.03); Imm Gran Pct Auto 0.5 % (0.0-0.4); Lymphocytes Absolute Auto 1.4 X10*3/uL (1.2-4.9); Lymphocytes Percent Auto 8.8 % (20-40); Mean Corpuscular HGB Conc 34.2 g/dl (31.0-36.0); Mean Corpuscular Hemoglobin 30.2 pg (27.0-33.0); Mean Corpuscular Volume 88.4 fL (80.0-98.0); Mean Platelet Volume 10.9 fL (9.4-12.4); Monocytes Absolute Auto 0.3 X10*3/uL (0.1-1.2); Monocytes Percent Auto 1.8 % (2-11); Neutrophils Percent Auto 88.6 % (45-73); Platelet Count 355 X10*3/uL (160-400); Red Blood Count 6.65 X10*6/uL (4.60-5.80); White Blood Count 15.8 X10*3/uL (4.8-10.8)
[2022-03-29] MEDS: ondansetron HCL 4 MG/2 ML VIAL IVPUSH (10:30)
[2022-03-29] MEDS: 0.9 % Sodium Chloride 1,000 ML 999 ML IV (10:30)
[2022-03-29] MEDS: diphenhydrAMINE HCL 50 MG/ML VIAL 25 MG IVPUSH (10:30)
[2022-03-29 10:43] LABS: Hemoglobin 20.1 g/dl (14.0-18.0)
[2022-03-29 10:46] LABS: Hematocrit 58.8 % (42.0-52.0)
[2022-03-29 11:00] LABS: COVID-19 Test Negative (Negative); IDNOW Serial# 55D5AD1C
--- NOTE | 2022-03-29 11:00 | PC.NURSE ---
22 ga iv inserted in L hand, 1 failed attempt in L ac. pt in no distress.
[2022-03-29 11:44] LABS: Amphetamine Screen Urine Not Detected (Not Detect); Barbiturates, Urine Not Detected (Not Detect); Benzodiazepines Screen Urine Not Detected (Not Detect); Cannabinoid Screen Urine POSITIVE (Not Detect); Cocaine Screen Urine Not Detected (Not Detect); Fentanyl, urine Not Detected (Not Detect); Opiate Screen Urine Not Detected (Not Detect); Phencyclidine Screen Urine Not Detected (Not Detect)
[2022-03-29 11:46] LABS: Appearance Urine Turbid; Color Urine Dark Yellow; Glucose Urine UA Negative (Negative); Leukocyte Esterase Urine Trace (Negative); Nitrite Urine Negative (Negative); Specific Gravity - Urine >= 1.030 (1.005-1.025); UMIC TRIGGER UACC YES; Urine Blood Negative (Negative); Urine Ketones 40 mg/dL (Negative); Urine Protein 300 (3+) mg/dL (Neg-Trace)
[2022-03-29 12:07] LABS: Bacteria Urine None Seen (None Seen); Granular Casts Urine Present; Hyaline Casts Urine >20 /LPF (0-2); WBC Urine 0-5 /HPF (0-5)
[2022-03-29] MEDS: Prochlorperazine Edisylate 10 MG/2 ML VIAL IVPUSH (12:13)
[2022-03-29 12:21] LABS: Alanine Aminotransferase 36 U/L (0-40); Albumin Level 5.8 g/dL (3.5-5.0); Alkaline Phosphatase 93 U/L (39-117); Aspartate Amino Transferase 23 U/L (5-37); Bilirubin Direct 0.4 mg/dL (0.0-0.5); Bilirubin Total 1.2 mg/dL (0.0-1.0); Blood Urea Nitrogen 31 mg/dL (9-16); Creatinine Clr Calc Pharmacy 32.4; Estimated Glomerular Filt Rate 28; Glucose Random 143 mg/dL (60-115); Lipase 21 U/L (8-78); Magnesium 2.6 mg/dL (1.6-2.6); Total Protein 9.8 g/dL (6.5-8.0)
[2022-03-29 12:30] LABS: Anion Gap 25 (12-20); Calcium 11.5 mg/dL (8.4-10.2); Carbon Dioxide 20 mmol/L (22-29); Chloride 107 mmol/L (96-108); Potassium 4.9 mmol/L (3.3-5.1); Sodium 147 mmol/L (135-145)
[2022-03-29 14:56] LABS: Anion Gap 21 (12-20); Blood Urea Nitrogen 31 mg/dL (9-16); Carbon Dioxide 20 mmol/L (22-29); Chloride 108 mmol/L (96-108); Creatinine Clr Calc Pharmacy 37.4; Estimated Glomerular Filt Rate 33; Glucose Random 204 mg/dL (60-115); Potassium 4.1 mmol/L (3.3-5.1); Sodium 145 mmol/L (135-145)
== END 2022-03-29 15:30 | disposition left against medical advice (07) ==
PROVIDERS: Physician Assistant; Emergency Provider Emergency Medicine; PCP Family Medicine
DX: R11.15 Cyclical vomiting syndrome unrelated to migraine (principal); R11.2 Nausea with vomiting, unspecified; F12.988 Cannabis use, unspecified with other cannabis-induced disorder; E86.0 Dehydration; N17.9 Acute kidney failure, unspecified; Z20.822 Contact with and (suspected) exposure to COVID-19; Z79.899 Other long term (current) drug therapy
CPT/HCPCS: 36415; 80048; 80076; 80307; 81001; 83690; 83735; 85025; 87635; 96374; 96375; 99283; 99284; J1200; J2405

== ENCOUNTER 2025-02-06 10:17 | Outpatient (AMB) | payer OTHER, SELFPAY ==
--- NOTE | 2025-02-06 10:20 | AM.OFFWIN_ITS ---
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 - The sting occurred earlier today, appr oximately two hours before the visit, suspected to be from a wasp or hornet. - He was walking in the [place] when he wa s stuck in the left ring finger. - He swatted the insect away when it hap pened. - Localized swelling is present at the s ite of the sting, with no redness. - He denies pain, redness, warmth, numbn ess, tingling, or previous anaphylaxis. Physical Exam General: Cooperative, healthy appearing, comfortable, no acute distress and well developed Orientation: Patient oriented x3 Respiratory: Normal respiratory effort and able to speak in complete sentences. Clear to auscultation bilaterally Cardiovascular: Regular rate and rhythm. Normal S1 and S2 Skin: Swollen, no rashes or lesions noted, no local infection or local reaction Neuro: Sensation intact. Extremities: Swollen left ring finger with a small punctate bite, normal to inspection, capillary refill is good, pulses are good. No erythema or warmth noted. Patient was informed and verbally consented to the use of an ambient scribe for clinic note documentation during this visit. [facility] Medical History Cyclical vomiting with nausea Social History Alcohol intake: current Alcohol intake frequency: a few times a month Patient Tobacco Use Status: Former Tobacco user Substance Use Type: Marijuana Review of Systems Const All systems reviewed & are unremarkable except as noted in HPI and below Physical Exam Vital Signs: Last Vital Signs Temp 98.3 F 02/06/25 10:21 Pulse 82 02/06/25 10:21 BP 122/80 02/06/25 10:21 Pulse Ox 97 02/06/25 10:21 Oxygen Delivery Method Room Air 02/06/25 10:21 Oxygen Flow Rate 97 02/06/25 10:21 BMI result Body Mass Index 27.2 Assessment & Plan Assessment & Plan (1) Bee sting: Code(s): T63.441A - Toxic effect of venom of bees, accidental (unintentional), initial encounter Qualifiers: Encounter type: initial encounter Injury intent: accidental or unintentional Qualified Code(s): T63.441A - Toxic effect of venom of bees, accidental (unintentional), initial encounter Plan Most likely swelling due to sting from insect Plan - Prescribe prednisone for a few days to reduce swelling. - Recommend antihistamines such as Claritin or Zyrtec for any itching or discomfort. - Advise the use of ice to manage swelling. - Watch for signs of infection such as redness, streaking, fever, chills, etc Medications: New prednisone 40 mg (2 x 20 mg) PO DAILY 10 tabs 0RF cetirizine 10 mg PO DAILY PRN 30 tabs 0RF allergy symptoms Discontinued ondansetron HCl (Zofran) Discontinued Reason: Patient Completed Course 4 mg PO Q6H PRN 20 tabs 0RF nausea and vomiting ondansetron HCl (Zofran) Discontinued Reason: Patient Completed Course 4 mg PO Q8H PRN 10 tabs 0RF nausea and vomiting prochlorperazine maleate (Compazine) Discontinued Reason: Patient Completed Course 5 mg PO TID PRN 10 tabs 0RF nausea and vomiting prochlorperazine maleate Discontinued Reason: Patient Completed Course 5 mg PO Q8H 48 hours PRN 6 tabs 0RF nausea and vomiting MDD 40mg prochlorperazine (Compazine) Use rectal suppositories in case of p.o. intolerance Discontinued Reason: Patient Completed Course 25 mg NC BID PRN 12 ea 0RF nausea and vomiting Coding Level of Care Code Est Pt Level 3 (23441) Diagnoses Bee sting, accidental or unintentional, initial encounter T63.441A Encounter type: initial encounter Injury intent: accidental or unintentional
[2025-02-06 10:21] VITALS: BP 122/80; PULSE 82; TEMP 36.8; O2SAT 97; BMI 27.2
--- OUTSIDE RECORDS SUMMARY | 2025-02-06 10:57 | XMS_ITS | Clinical Summary ---
Author Organization [facility] Address [address] [place] [id number] Phone Care Team Providers Care Joy Operator Helper Name Role Phone Natan Chirinos MD Primary Care Provider Allergies No known active allergies Medications No known medications Active Problems No known active problems Resolved Problems Problem Noted Date Diagnosed Date Resolved Date Hepatitis 12/16/2021 12/16/2021 Immunizations No known immunizations Family History Medical History Relation Comments Brain cancer Maternal Aunt Mitral valve insufficiency Maternal Grandmother regurgitation Relation Status Comments Maternal Aunt (Age 62) Maternal Grandmother (Age 75) Social History Tobacco Use Types Packs/Day Years Used Date Smoking Tobacco: Former Cigarettes Q uit: 1998 Smokeless Tobacco: Never Education Answer Date Recorded Are you interested in more education? Not on maciel e 10/22/2022 Are you concerned about learning? Not on file 10/22/2022 No 10/22/2022 No 10/22/2022 Digital Access Answer Date Recorded No 11/20/2022 No 11/20/2022 Reliable internet access at home? Not on file 11/20/2022 Device with a working camera? Not on file Sex and Gender Information Value Date Recorded Sex Assigned at Not on file Legal Sex Male 10:31 PM EDT Gender Identity Not on file Sexual Orientation Not on file Last Filed Vital Signs Vital Sign Reading Time Taken Comments Blood Pressure 104/73 12/16/2021 8:38 AM EDT Pulse 78 12/16/2021 8:38 AM EDT Temperature 36.5 C (97.7 F) 12/16/2021 8:38 AM EDT Respiratory Rate 16 12/16/2021 8:38 AM EDT Oxygen Saturation 98% 12/16/2021 8:38 AM EDT Inhaled Oxygen Concentration - - Weight 73.9 kg (163 lb) 12/16/2021 8:38 AM EDT Height 167.6 cm (5' 6 ) 12/16/2021 8:38 AM EDT Body Mass Index 26.31 12/16/2021 8:38 AM EDT Plan of Treatment Health Maintenance Due Date Last Done Comments LIPID PANEL 1971 DEPRESSION SCREENING 1983 SMOKING Hx and SMOKELESS TOB ACCO SCREENING 10/28/1984 HEPATITIS C SCREENING 10/28/1989 HIV ONE-TIME SCREENING (18-6 5 YEARS) 10/28/1989 COLOGUARD 10/28/2016 COLONOSCOPY 10/28/2016 COLORECTAL CANCER SCREENING 10/28/2016 FIT TEST 10/28/2016 FOBT 10/28/2016 SIGMOIDOSCOPY 10/28/2016 VIRTUAL COLONOSCOPY 10/28/2016 PNEUMOCOCCAL VACCINES (50+ y ears) (1 of 1 - PCV) 10/28/2021 ZOSTER VACCINES (1 of 2) 10/28/2021 COVID-19 VACCINE (2 - 2023-2 5 season) 2024 10/01/2020 Adult Td,Tdap Booster 10/07/2025 10/08/2015 HEPATITIS A VACCINES Aged Out No long er eligible based on patient's age to complete this topic HIB VACCINES Aged Out No longer eligi ble based on patient's age to complete this topic MENINGOCOCCAL VACCINES (ACWY) Aged Out No longer eligible based on patient's age to complete this topic MENINGOCOCCAL VACCINES (B) Aged Out N o longer eligible based on patient's age to complete this topic Medical Devices Not on file [place] [address] [place] [address] [place] [address] [place] [address] HMO O O O HMO Care Teams Joy Operator Helper Relationship Specialty Start Date End Date Natan Chirinos MD [email or web address] PCP - General Family Medicine 02/23/19 Additional Source Comments The information contained in this document represents components of the legal health record. It is not the complete legal health record.[facility]
== END 2025-02-06 11:28 | disposition home or self-care (01) ==
PROVIDERS: PCP Family Medicine; Visit Provider Physician Assistant Medical
DX: T63.441A Toxic effect of venom of bees, accidental (unintentional), initial encounter (principal)